=== PATIENT | male | born 1960 | race Caucasian/White ===

== ENCOUNTER 2021-03-01 04:13 | Day surgery (SDC) | payer OTHER ==
[2021-02-20 10:43] VITALS: BMI 38.0
[2021-03-01] MEDS ORDERED: BUPIVACAINE HCL/PF 0.5% (5MG/ML) 10 ML VIAL ONE (07:28)
[2021-03-01] MEDS ORDERED: SUCCINYLCHOLINE CHLORIDE 200 MG/10 ML SYRINGE ONE (07:32)
[2021-03-01] MEDS ORDERED: MIDAZOLAM HCL 2 MG/2 ML SINGLE DOSE VIAL ONE (07:32)
[2021-03-01] MEDS ORDERED: PROPOFOL 20 ML ONE (07:32)
[2021-03-01] MEDS ORDERED: GENTAMICIN 80MG PREMIX BAG IVPB ONE (08:21)
[2021-03-01] MEDS ORDERED: ceFAZolin SODIUM 1 GM VIAL IVPB ONE (08:22)
[2021-03-01] MEDS ORDERED: GENTAMICIN SO4 80 MG/2 ML VIAL ONE (08:22)
[2021-03-01] MEDS ORDERED: ceFAZolin SODIUM 1 GM VIAL ONE (08:25)
[2021-03-01] MEDS ORDERED: ONDANSETRON 4 MG/2 ML VIAL ONE (08:28)
[2021-03-01] MEDS ORDERED: DEXAMETHASONE SOD PHOSPHATE 4 MG/1 ML VIAL ONE (08:28)
[2021-03-01] MEDS ORDERED: oxyCODONE HCL 5 MG TABLET PO PRN (08:56)
[2021-03-01] MEDS ORDERED: ONDANSETRON 4 MG/2 ML VIAL IVPUSH PRN (08:57)
[2021-03-01] MEDS ORDERED: LACTATED RINGERS SOLUTION 1,000 ML IV SCH (09:00)
[2021-03-01] MEDS ORDERED: DEXTROSE 5%-0.45% SALINE 1,000 ML IV SCH (09:00)
[2021-03-01 13:54] VITALS: BP 148/87; PULSE 89; TEMP 98.3
== END 2021-03-01 14:10 | disposition home or self-care (01) ==
LOC: JASU-SURG 04:13
PROVIDERS: ATTEND Urology
PROC: 0T5B8ZZ Destruction of Bladder, Via Natural or Artificial Opening Endoscopic (ICD-10-PCS; principal; 2021-03-01 07:30)
DX: C67.9 Malignant neoplasm of bladder, unspecified (principal); I10 Essential (primary) hypertension; E11.9 Type 2 diabetes mellitus without complications; Z79.84 Long term (current) use of oral hypoglycemic drugs
CPT/HCPCS: 82962; 88305-TC; 88342-TC; 94760

== ENCOUNTER 2021-04-12 04:21 | Day surgery (SDC) | payer OTHER ==
[2021-04-10 13:26] VITALS: BMI 34.9
[2021-04-12] MEDS ORDERED: PROPOFOL 20 ML ONE (09:43)
[2021-04-12] MEDS ORDERED: MIDAZOLAM HCL 2 MG/2 ML SINGLE DOSE VIAL ONE (09:43)
[2021-04-12] MEDS ORDERED: AMPICILLIN NA/SULBACTAM NA 3 GM in SODIUM CHLORIDE 100 ML IVPB ONE ×2 (09:54→10:15)
[2021-04-12] MEDS ORDERED: AMPICILLIN NA/SULBACTAM NA 3 GM VIAL IVPB ONE (10:10)
[2021-04-12] MEDS ORDERED: oxyCODONE HCL 5 MG TABLET PO PRN (10:48)
[2021-04-12] MEDS ORDERED: DEXTROSE 5%-0.45% SALINE 1,000 ML IV SCH (11:00)
[2021-04-12] MEDS ORDERED: ONDANSETRON 4 MG/2 ML VIAL IVPUSH PRN (11:14)
[2021-04-12] MEDS ORDERED: LACTATED RINGERS SOLUTION 1,000 ML IV SCH (11:15)
[2021-04-12 15:41] VITALS: PULSE 62
[2021-04-12 15:50] VITALS: BP 135/72; TEMP 98.2
== END 2021-04-12 15:30 | disposition home or self-care (01) ==
LOC: JASU-SURG 04:21
PROVIDERS: ATTEND Urology
PROC: 0TBB8ZX Excision of Bladder, Via Natural or Artificial Opening Endoscopic, Diagnostic (ICD-10-PCS; principal; 2021-04-12 09:30)
DX: C67.9 Malignant neoplasm of bladder, unspecified (principal); I10 Essential (primary) hypertension; E11.9 Type 2 diabetes mellitus without complications; I25.10 Atherosclerotic heart disease of native coronary artery without angina pectoris; E78.5 Hyperlipidemia, unspecified; Z79.84 Long term (current) use of oral hypoglycemic drugs
CPT/HCPCS: 82962; 88307-TC; 94760

== ENCOUNTER 2021-07-19 04:19 | Day surgery (SDC) | payer OTHER ==
[2021-07-17 15:04] VITALS: BMI 38.0
[2021-07-19] MEDS ORDERED: DEXAMETHASONE SOD PHOSPHATE 4 MG/1 ML VIAL ONE (07:02)
[2021-07-19] MEDS ORDERED: LIDOCAINE HCL 2% 100 MG/5 ML DISP.SYRIN ONE (07:02)
[2021-07-19] MEDS ORDERED: PHENYLEPHRINE HCL 10 MG/1 ML SINGLE DOSE VIAL ONE (07:02)
[2021-07-19] MEDS ORDERED: PROPOFOL 20 ML ONE (07:03)
[2021-07-19] MEDS ORDERED: MIDAZOLAM HCL 2 MG/2 ML SINGLE DOSE VIAL ONE (07:04)
[2021-07-19] MEDS ORDERED: ceFAZolin SODIUM 1 GM VIAL ONE (08:07)
[2021-07-19] MEDS ORDERED: GENTAMICIN SO4 80 MG/2 ML VIAL ONE (08:09)
[2021-07-19] MEDS ORDERED: ceFAZolin SODIUM 1 GM VIAL IVPB ONE (08:10)
[2021-07-19] MEDS ORDERED: GENTAMICIN SO4 80 MG/2 ML VIAL IVPB ONE (08:10)
[2021-07-19] MEDS ORDERED: ROCURONIUM BROMIDE 50 MG/5 ML SYRINGE ONE (08:12)
[2021-07-19] MEDS ORDERED: DESFLURANE GAS 240 ML BOTTLE IH ONE (08:15)
[2021-07-19] MEDS ORDERED: oxyCODONE HCL 5 MG TABLET PO PRN (08:40)
[2021-07-19] MEDS ORDERED: ELECTROLYTE-148 SOLN 1,000 ML IV SCH (08:45)
[2021-07-19] MEDS ORDERED: LACTATED RINGERS SOLUTION 1,000 ML IV SCH (09:00)
[2021-07-19 10:43] VITALS: PULSE 78
[2021-07-19 11:15] VITALS: BP 143/73; TEMP 98.9
== END 2021-07-19 11:10 | disposition home or self-care (01) ==
LOC: JASU-SURG 04:19
PROVIDERS: ATTEND Urology
PROC: 0TBB8ZX Excision of Bladder, Via Natural or Artificial Opening Endoscopic, Diagnostic (ICD-10-PCS; principal; 2021-07-19 07:30)
DX: D30.3 Benign neoplasm of bladder (principal)
CPT/HCPCS: 82962; 88305-TC; 94760

== ENCOUNTER 2022-12-05 04:20 | Day surgery (SDC) | payer OTHER ==
[2022-12-04 13:45] VITALS: BMI 38.0
[2022-12-05] MEDS ORDERED: PROPOFOL 40 ML ONE (16:37)
[2022-12-05] MEDS ORDERED: ONDANSETRON 4 MG/2 ML VIAL ONE (16:39)
[2022-12-05] MEDS ORDERED: LIDOCAINE HCL/PF 2% SDV 5ML VIAL ONE (16:39)
[2022-12-05] MEDS ORDERED: MIDAZOLAM HCL 2 MG/2 ML SINGLE DOSE VIAL ONE (16:40)
[2022-12-05] MEDS ORDERED: ceFAZolin SODIUM 1 GM VIAL IVPB ONE (16:54)
[2022-12-05] MEDS ORDERED: oxyCODONE HCL 5 MG TABLET PO PRN (17:21)
[2022-12-05] MEDS ORDERED: ONDANSETRON 4 MG/2 ML VIAL IVPUSH PRN (17:28)
[2022-12-05] MEDS ORDERED: LACTATED RINGERS SOLUTION 1,000 ML IV SCH (17:30)
[2022-12-05] MEDS ORDERED: DEXTROSE 5%-0.45% SALINE 1,000 ML IV SCH (17:30)
[2022-12-05 19:13] VITALS: RESP 16
[2022-12-05 19:43] VITALS: BP 140/59; PULSE 88; TEMP 98.2
== END 2022-12-05 19:40 | disposition home or self-care (01) ==
LOC: JASU-SURG 04:20
PROVIDERS: ATTEND Urology
PROC: 0TBC8ZZ Excision of Bladder Neck, Via Natural or Artificial Opening Endoscopic (ICD-10-PCS; 2022-12-05)
PROC: 0TBB8ZZ Excision of Bladder, Via Natural or Artificial Opening Endoscopic (ICD-10-PCS; principal; 2022-12-05 16:00)
DX: C67.1 Malignant neoplasm of dome of bladder (principal); N30.90 Cystitis, unspecified without hematuria
CPT/HCPCS: 82962; 88305-TC; 94760